=== PATIENT | female | born 1950 | race Caucasian/White ===

== ENCOUNTER 2016-06-14 05:24 | Day surgery (SDC) | payer MEDICARE, BC ==
[~2016-06-14 05:24] MED LIST: AMINO ACIDS PO; ANTIBIOTIC; ASABAYER PO; BEE POLLEN PO; CALTRA600D PO; HCTZ; KLONO1 PO; LIPITOR20 PO; LISINOPRIL; METHOC500B PO; METHOC750B PO; NEUR300 PO; NORCO1 TA2 PO; NORV10 PO; PHENTERMINE37.5 MG PO; PROZAC; PROZAC40 MG PO; ROXICODONE15 MG PO; VITAMIN D31000 UNIT PO; ZESTORETIC PO; ZESTORETIC1 TA1 PO; [UNRECOGNIZED DRUG - OTHER]
[2016-09-15] MEDS ORDERED: GLUCPH PO (11:49)
[2016-09-15] MEDS ORDERED: ANXIETY PILL (11:50)
== END 2016-06-14 23:59 | disposition home or self-care (01) ==
LOC: SDC 05:24
PROVIDERS: Orthopaedic Surgery
PROC: 3E0S33Z Introduction of Anti-inflammatory into Epidural Space, Percutaneous Approach (ICD-10-PCS; principal; 2016-06-14 07:30)
DX: M54.16 Radiculopathy, lumbar region (principal); I10 Essential (primary) hypertension; K21.9 Gastro-esophageal reflux disease without esophagitis; Z90.49 Acquired absence of other specified parts of digestive tract; F41.9 Anxiety disorder, unspecified; F32.9 Major depressive disorder, single episode, unspecified; Z90.710 Acquired absence of both cervix and uterus; Z88.0 Allergy status to penicillin
CPT/HCPCS: J2250; J3010